=== PATIENT | male | born 1960 | race Two or more races ===

== ENCOUNTER 2017-01-20 15:18 | Emergency (ER) | payer SELFPAY ==
[~2017-01-20] VITALS: Ht 177.8 cm; Wt 97.0 kg
[~2017-01-20 15:18] MED LIST: ADVIL,NUPRIN,M200 MG PO; Tums,OsCal PO
[2017-01-20 17:12] LABS: EOSINOPHIL (%) 1.4 % (0-5); EOSINOPHIL COUNT 0.1 K/uL (0-0.3); HEMATOCRIT 48.6 % (38.0-50.0); IMMATURE GRANULOCYTE (%) 0.3 % (0.0-0.7); LYMPHOCYTE COUNT 1.9 K/uL (1.0-2.8); MCH 30.1 PG (29.0-34.0); MCHC 32.7 G/DL (30.0-36.0); MEAN PLAT.VOLUME 11.3 uM^3 (9.0-12.4); MONOCYTE (%) 9.4 % (3-12); MONOCYTE COUNT 0.7 K/uL (0-0.8); PLATELET COUNT 165 K/uL (156-360); RBC DIS.WIDTH-CV 13.7 % (11.8-14.6); RBC DIS.WIDTH-SD 46.3 % (39-53); RED BLOOD COUNT 5.28 M/uL (4.00-5.50); WHITE BLOOD COUNT 7.8 K/uL (4.1-10.2)
[2017-01-20 17:21] LABS: CHLORIDE 107 mEq/L (99-109); POTASSIUM 4.4 mEq/L (3.7-5.4); SODIUM 141 mEq/L (136-147)
[2017-01-20 17:23] LABS: GLUCOSE 88 mg/dL (70-99)
[2017-01-20 17:25] LABS: ANION GAP 11 MEQ/L (2-14); TOTAL BILIRUBIN 2.1 mg/dL (0.0-1.0)
[2017-01-20 17:27] LABS: ALKALINE PHOSPHATASE 68 IU/L (3-129); GFR ESTIMATE (CALCULATED) > 59 mL/min/
[2017-01-20 17:28] LABS: UREA NITROGEN (BUN) 23 mg/dL (9-23)
[2017-01-20 17:34] LABS: TROP-I INTERPRETATION NEGATIVE; TROPONIN-I < 0.01 ng/mL (0.0-0.30)
[2017-01-20 17:54] LABS: ADD MIUA? NO; BILIRUBIN NEGATIVE; BLOOD NEGATIVE; COLOR YELLOW ((YELLOW)); GLUCOSE (STRIP) NEGATIVE; KETONES NEGATIVE; LEUKOCYTES NEGATIVE; NITRITE NEGATIVE; PROTEIN (STRIP) NEGATIVE; SPECIFIC GRAVITY 1.014 (1.000-1.030); UCUL ADDED? NO; UROBILINOGEN 0.2 MG/DL (0.2-1.0)
[2017-01-20] MEDS ORDERED: LASIX40 MG PO (19:11)
[2017-01-20 19:19] VITALS: BP 118/87
== END 2017-01-20 19:20 | disposition home or self-care (01) ==
LOC: EME 15:18
PROVIDERS: Emergency Medicine
DX: I50.9 Heart failure, unspecified (principal); E87.70 Fluid overload, unspecified; Z91.19 Patient's noncompliance with other medical treatment and regimen; Z88.0 Allergy status to penicillin
CPT/HCPCS: 71020; 80053; 81003; 83880; 84484; 85025; 93005; 99281; 99283

== ENCOUNTER 2017-05-21 12:15 | Observation (INO) | payer OTHER ==
[~2017-05-21] VITALS: Ht 180.3 cm; Wt 96.3 kg
[~2017-05-21 12:15] MED LIST changes: +LASIX40 MG PO
[2017-05-21 13:10] LABS: HEMATOCRIT 45.6 % (38.0-50.0); MCH 29.6 PG (29.0-34.0); MCHC 33.1 G/DL (30.0-36.0); MCV 89.4 FL (86-99); MEAN PLAT.VOLUME 11.8 uM^3 (9.0-12.4); PLATELET COUNT 150 K/uL (156-360); RBC DIS.WIDTH-SD 49.1 % (39-53); WHITE BLOOD COUNT 7.5 K/uL (4.1-10.2)
[2017-05-21 13:17] LABS: CHLORIDE 109 mEq/L (99-109); POTASSIUM 4.3 mEq/L (3.7-5.4); SODIUM 138 mEq/L (136-147)
[2017-05-21 13:19] LABS: GLUCOSE 116 mg/dL (70-99)
[2017-05-21 13:21] LABS: ANION GAP 6 MEQ/L (2-14)
[2017-05-21 13:23] LABS: GFR ESTIMATE (CALCULATED) > 59 mL/min/
[2017-05-21 13:24] LABS: UREA NITROGEN (BUN) 24 mg/dL (9-23)
[2017-05-21] MEDS ORDERED: LISINOPRIL2.5 MG PO (13:54)
[2017-05-21] MEDS ORDERED: ASPIR 8181 M1 PO (13:55)
[2017-05-21] MEDS ORDERED: METOPROLOL SUCC25 MG PO (13:55)
[2017-05-21 14:31] LABS: TROP-I INTERPRETATION NEGATIVE; TROPONIN-I 0.02 ng/mL (0.0-0.30)
[2017-05-21 14:34] LABS: D-DIMER ELISA < 150.00 ng/mLDDU (<230)
[2017-05-21 18:53] VITALS: BP 112/78
[2017-05-21 21:09] LABS: TROP-I INTERPRETATION NEGATIVE; TROPONIN-I < 0.01 ng/mL (0.0-0.30)
[2017-05-21 23:50] VITALS: BP 100/80
[2017-05-22 03:34] LABS: TROP-I INTERPRETATION NEGATIVE; TROPONIN-I 0.02 ng/mL (0.0-0.30)
[2017-05-22 03:58] VITALS: BP 125/66
[2017-05-22 07:45] VITALS: BP 108/83
== END 2017-05-22 11:35 | disposition home or self-care (01) ==
LOC: EME 12:15 → 5WEST 16:36 → EDOF 16:36 → ENRESERV 16:38 → 5WEST 18:15
PROVIDERS: Internal Medicine; Physician Assistant
DX: R07.9 Chest pain, unspecified (principal); I42.9 Cardiomyopathy, unspecified; R06.02 Shortness of breath; I48.91 Unspecified atrial fibrillation; I44.7 Left bundle-branch block, unspecified; J45.909 Unspecified asthma, uncomplicated; R19.7 Diarrhea, unspecified; F41.9 Anxiety disorder, unspecified; Z82.49 Family history of ischemic heart disease and other diseases of the circulatory system; Z88.8 Allergy status to other drugs, medicaments and biological substances; Z79.82 Long term (current) use of aspirin
CPT/HCPCS: 71020; 80048; 84484; 85027; 85379; 93005; 99281; 99284; G0378; J1650

== ENCOUNTER 2017-06-08 16:44 | Emergency (ER) | payer OTHER ==
[~2017-06-08] VITALS: Ht 180.3 cm; Wt 94.0 kg
[~2017-06-08 16:44] MED LIST changes: +ASPIR 8181 M1 PO; +LISINOPRIL2.5 MG PO; +METOPROLOL SUCC25 MG PO
[2017-06-08 17:20] LABS: HEMATOCRIT 47.5 % (38.0-50.0); MCH 30.2 PG (29.0-34.0); MCHC 33.3 G/DL (30.0-36.0); MCV 90.6 FL (86-99); MEAN PLAT.VOLUME 11.3 uM^3 (9.0-12.4); PLATELET COUNT 160 K/uL (156-360); RBC DIS.WIDTH-CV 14.6 % (11.8-14.6); RBC DIS.WIDTH-SD 48.7 % (39-53); RED BLOOD COUNT 5.24 M/uL (4.00-5.50); WHITE BLOOD COUNT 7.8 K/uL (4.1-10.2)
[2017-06-08 17:29] LABS: CHLORIDE 105 mEq/L (99-109); POTASSIUM 4.3 mEq/L (3.7-5.4); SODIUM 142 mEq/L (136-147)
[2017-06-08 17:30] LABS: GLUCOSE 101 mg/dL (70-99)
[2017-06-08 17:32] LABS: ANION GAP 13 MEQ/L (2-14)
[2017-06-08 17:34] LABS: GFR ESTIMATE (CALCULATED) > 59 mL/min/
[2017-06-08 17:35] LABS: UREA NITROGEN (BUN) 24 mg/dL (9-23)
[2017-06-08 18:02] LABS: TROP-I INTERPRETATION NEGATIVE; TROPONIN-I 0.03 ng/mL (0.0-0.30)
[2017-06-08 20:09] LABS: TROP-I INTERPRETATION NEGATIVE; TROPONIN-I 0.03 ng/mL (0.0-0.30)
[2017-06-08 21:04] VITALS: BP 94/82
== END 2017-06-08 21:05 | disposition home or self-care (01) ==
LOC: EME 16:44
PROVIDERS: Physician Assistant Medical
DX: R05 Cough (principal); R06.02 Shortness of breath; I50.9 Heart failure, unspecified; I48.91 Unspecified atrial fibrillation; Z79.82 Long term (current) use of aspirin
CPT/HCPCS: 71020; 80048; 83880; 84484; 85027; 85379; 93005; 99281; 99284

== ENCOUNTER 2017-08-09 09:07 | Day surgery (SDC) | payer OTHER ==
[~2017-08-09] VITALS: Ht 180.3 cm; Wt 95.0 kg
[~2017-08-09 09:07] MED LIST changes: +ATORVASTATIN CA40 MG PO; +ELIQUIS5 MG PO; +ENTRESTO 24 MG1 EACH PO; +LASIX20 MG PO; +VENTOLIN HFA18 GM IH
== END 2017-08-09 16:25 | disposition home or self-care (01) ==
LOC: CATH 09:07
DX: I25.10 Atherosclerotic heart disease of native coronary artery without angina pectoris (principal); I42.0 Dilated cardiomyopathy; I34.0 Nonrheumatic mitral (valve) insufficiency; I48.1 Persistent atrial fibrillation; R42 Dizziness and giddiness; I50.22 Chronic systolic (congestive) heart failure; Z86.73 Personal history of transient ischemic attack (TIA), and cerebral infarction without residual deficits; J45.909 Unspecified asthma, uncomplicated; Z79.82 Long term (current) use of aspirin; Z79.01 Long term (current) use of anticoagulants; Z88.0 Allergy status to penicillin; R94.31 Abnormal electrocardiogram [ECG] [EKG]
CPT/HCPCS: 85347; C1769; C1887; J1644; J2250; J3010

== ENCOUNTER 2018-02-01 08:54 | Emergency (ER) | payer OTHER ==
[~2018-02-01] VITALS: Ht 180.3 cm; Wt 95.3 kg
[2018-02-01 10:04] LABS: BASOPHIL (%) 0.3 % (0-1); EOSINOPHIL (%) 0.2 % (0-5); HEMATOCRIT 48.1 % (38.0-50.0); HEMOGLOBIN 15.9 G/DL (12.5-16.6); IMMATURE GRANULOCYTE (%) 0.3 % (0.0-0.7); LYMPHOCYTE (%) 15.2 % (15-42); LYMPHOCYTE COUNT 1.5 K/uL (1.0-2.8); MCH 30.2 PG (29.0-34.0); MCHC 33.1 G/DL (30.0-36.0); MCV 91.4 FL (86-99); MONOCYTE (%) 9.7 % (3-12); NEUTROPHIL (%) 74.3 % (45-76); NEUTROPHIL COUNT 7.3 K/uL (1.8-6.4); PLATELET COUNT 147 K/uL (156-360); RBC DIS.WIDTH-CV 15.4 % (11.8-14.6); RBC DIS.WIDTH-SD 51.4 % (39-53); RED BLOOD COUNT 5.26 M/uL (4.00-5.50); WHITE BLOOD COUNT 9.9 K/uL (4.1-10.2)
[2018-02-01 10:15] LABS: CHLORIDE 101 mEq/L (99-109); SODIUM 137 mEq/L (136-147)
[2018-02-01 10:17] LABS: GLUCOSE 89 mg/dL (70-99)
[2018-02-01 10:20] LABS: CREATININE 1.2 mg/dL (0.6-1.3); GFR ESTIMATE (CALCULATED) > 59 mL/min/ (58.99-99999)
[2018-02-01 10:21] LABS: UREA NITROGEN (BUN) 22 mg/dL (9-23)
[2018-02-01 10:23] LABS: URIC ACID 6.1 mg/dL (3.1-9.2)
[2018-02-01] MEDS ORDERED: PERCOCET 5/31 TABLET PO (11:47)
[2018-02-01] MEDS ORDERED: MOTRIN800 MG PO ×2 (12:07→12:16)
[2018-02-01 12:14] VITALS: BP 114/87
== END 2018-02-01 12:29 | disposition home or self-care (01) ==
LOC: EME 08:54
PROVIDERS: Emergency Medicine
DX: M10.9 Gout, unspecified (principal); M71.22 Synovial cyst of popliteal space [Baker], left knee; M19.071 Primary osteoarthritis, right ankle and foot; I50.9 Heart failure, unspecified; I09.89 Other specified rheumatic heart diseases; K21.9 Gastro-esophageal reflux disease without esophagitis; J45.909 Unspecified asthma, uncomplicated; F32.9 Major depressive disorder, single episode, unspecified; Z79.82 Long term (current) use of aspirin; Z90.49 Acquired absence of other specified parts of digestive tract; Z88.0 Allergy status to penicillin; Z88.8 Allergy status to other drugs, medicaments and biological substances
CPT/HCPCS: 73630; 80048; 84550; 85025; 93971; 99281; 99284

== ENCOUNTER 2018-02-19 17:44 | Emergency (ER) | payer OTHER ==
[~2018-02-19] VITALS: Ht 180.3 cm; Wt 98.5 kg
[~2018-02-19 17:44] MED LIST changes: +MOTRIN800 MG PO; +PERCOCET 5/31 TABLET PO
[2018-02-19 18:31] LABS: HEMATOCRIT 48.7 % (38.0-50.0); HEMOGLOBIN 16.1 G/DL (12.5-16.6); MCHC 33.1 G/DL (30.0-36.0); MCV 90.9 FL (86-99); PLATELET COUNT 163 K/uL (156-360); RBC DIS.WIDTH-CV 15.3 % (11.8-14.6); RBC DIS.WIDTH-SD 50.3 % (39-53); RED BLOOD COUNT 5.36 M/uL (4.00-5.50); WHITE BLOOD COUNT 6.6 K/uL (4.1-10.2)
[2018-02-19 18:44] LABS: CHLORIDE 108 mEq/L (99-109); POTASSIUM 4.2 mEq/L (3.7-5.4); SODIUM 144 mEq/L (136-147)
[2018-02-19 18:45] LABS: GLUCOSE 95 mg/dL (70-99)
[2018-02-19 18:49] LABS: CREATININE 1.3 mg/dL (0.6-1.3); GFR ESTIMATE (CALCULATED) > 59 mL/min/ (58.99-99999)
[2018-02-19 18:50] LABS: UREA NITROGEN (BUN) 29 mg/dL (9-23)
[2018-02-19 18:51] LABS: TROP-I INTERPRETATION NEGATIVE; TROPONIN-I < 0.01 ng/mL (0.0-0.30)
[2018-02-19 23:29] VITALS: BP 111/67
== END 2018-02-19 23:28 | disposition home or self-care (01) ==
LOC: EME 17:44
PROVIDERS: Emergency Medicine
DX: I50.9 Heart failure, unspecified (principal); R60.0 Localized edema; J45.909 Unspecified asthma, uncomplicated; F32.9 Major depressive disorder, single episode, unspecified; K21.9 Gastro-esophageal reflux disease without esophagitis; Z88.0 Allergy status to penicillin; Z88.8 Allergy status to other drugs, medicaments and biological substances
CPT/HCPCS: 71046; 71250; 80048; 83880; 84484; 85027; 93005; 99281; 99284; J1940